=== PATIENT | male | born 1990 | race Hispanic/Latino ===

== ENCOUNTER 2021-03-03 20:41 | Emergency (ER) | payer SELFPAY ==
[~2021-03-03] VITALS: Ht 172.7 cm; Wt 102.1 kg
[2021-03-03] MEDS ORDERED: DONNATAL/LIDOCAINE/MAALOX 30 ML SUSP PO ONE (22:45)
[2021-03-03] MEDS ORDERED: LIDOCAINE VISC 2% SOLN 15 ML UDC ONE (22:48)
[2021-03-03] MEDS ORDERED: MAGNESIUM/ALUMINUM/SIMETHICONE 30 ML UDC ONE (22:48)
[2021-03-03] MEDS ORDERED: BELLADONNA ALK/PHENOBARBITAL 5 ML UDC ONE (22:48)
[2021-03-03] MEDS ORDERED: PANTOPRAZOLE SO40 MG PO (22:59)
[2021-03-03] MEDS ORDERED: CARAFATE1 GM PO (23:00)
[2021-03-03 23:23] VITALS: BP 126/72
== END 2021-03-03 23:23 | disposition home or self-care (01) ==
LOC: FSED 21:02
DX: R10.13 Epigastric pain (principal); K29.70 Gastritis, unspecified, without bleeding; K21.9 Gastro-esophageal reflux disease without esophagitis
CPT/HCPCS: 99283